=== PATIENT | male | born 2000 | race Two or more races ===

== ENCOUNTER 2025-02-15 00:26 | Emergency (ER) | payer OTHER ==
[~2025-02-15] VITALS: Ht 177.8 cm; Wt 102.1 kg
[2025-02-15 01:09] VITALS: O2SAT 100
[2025-02-15] MEDS ORDERED: DEXAMETHASONE SODIUM PHOSPHATE 4 MG/ML VIAL IM STA (01:32)
[2025-02-15] MEDS ORDERED: KETOROLAC TROMETHAMINE 30 MG VIAL IM STA (01:33)
[2025-02-15] MEDS ORDERED: ORPHENADRINE CITRATE 30 MG/ML AMPUL IM STA (01:33)
[2025-02-15 02:25] LABS: BASO % 0.2 % (0.1-1.2); EOS # 0.04 (0.04-0.54); EOS % 0.5 % (0.7-7.0); LYMPH # 0.69 (1.18-3.74); LYMPH % 8.0 % (19.3-53.1); MEAN PLATELET VOLUME 9.20 fl (9.4-12.4); MONO # 1.09 (0.24-0.82); NEUT # 6.77 (1.56-6.13); NEUT % 78.2 % (34.0-71.1); RED CELL DISTRIBUTION WIDTH 11.9 % (11.6-14.4)
[2025-02-15 02:33] LABS: INR 1.07
[2025-02-15 02:42] LABS: MONO % 12.6 % (4.7-12.5)
[2025-02-15 02:53] LABS: ALT/SGPT 66.0 U/L (12-78); AST/SGOT 25.0 U/L (15-37); BILIRUBIN TOTAL 0.52 mg/dL (0.3-1.2); BUN CREA RATIO 15.0 (7.0-25.0); CREATININE SERUM 0.85 mg/dL (0.70-1.30); GFR 110.74; GLOBULINA 3.4 G/DL (2.4-3.5); GLUCOSE FASTING 108.0 mg/dL (65-100); OSMOLALITY SERUM 284.0 MOSM/KG (275-295)
[2025-02-15 03:05] LABS: COVID-19 AG NEGATIVE (NEGATIVE)
[2025-02-15] MEDS ORDERED: OSEL75CA PO (04:33)
[2025-02-15] MEDS ORDERED: LABETALOL HCL 20MG/4ML SYRINGE IV STA (04:58)
[2025-02-15 05:39] VITALS: BP 149/85
== END 2025-02-15 05:39 | disposition home or self-care (01) ==
LOC: ER 00:27
PROVIDERS: Physician Assistant Medical
DX: J10.1 Influenza due to other identified influenza virus with other respiratory manifestations (principal); M54.2 Cervicalgia; M62.838 Other muscle spasm; Z20.822 Contact with and (suspected) exposure to COVID-19; I16.9 Hypertensive crisis, unspecified